=== PATIENT | female | born 1960 | race African-American/Black ===

== ENCOUNTER 2019-03-04 08:44 | Day surgery (SDC) | payer OTHER ==
[2019-03-04 09:35] VITALS: BMI 26.1
[2019-03-04 10:34] VITALS: TEMP 97.5
[2019-03-04 11:18] VITALS: BP 136/72; PULSE 64
--- NOTE | 2019-03-07 12:54 | PATH ---
Surgical Pathology Report Patient Name: FRANCIS JULES [facility]. Rec. #: [id number] /Age/Gender: 1960 (Age: 58) / F Account: [id number] Location: U-ENDOSCOPY Taken: 03/04/2019 Received: 03/04/2019 Reported: 03/07/2019 Physicians: Aldair Kim M.D. Specimen(s) Received A: SECOND PORTION OF DUODENUM AND DUODENAL BULB B: ANTRUM C: GE JUNCTION D: RECTAL POLYP Clinical History Anemia, occult GI bleed, personal history of colon polyp Postoperative diagnosis: Hiatal hernia, rectal polyp, diverticulosis Final Diagnosis A. SECOND PORTION OF DUODENUM AND DUODENAL BULB, BIOPSY: DUODENAL MUCOSA WITH NO PATHOLOGIC FINDINGS. B. ANTRUM, BIOPSY: MILD CHRONIC GASTRITIS. IMMUNOSTAIN IS NEGATIVE FOR H. PYLORI ORGANISMS. C. GE JUNCTION, BIOPSY: HYPERPLASTIC ESOPHAGEAL (SQUAMOUS) MUCOSA WITH FEW INTRAEPITHELIAL EOSINOPHILS, CONSISTENT WITH EOSINOPHILIC ESOPHAGITIS. NO COLUMNAR EPITHELIUM/INTESTINAL METAPLASIA IS IDENTIFIED. D. RECTAL POLYP, BIOPSY: HYPERPLASTIC POLYP. Electronically Signed Lilly Parada M.D. Gross Description A. Received in formalin, labeled "biopsy second portion of duodenum and duodenal bulb" are 3 palacios, irregular portions of soft tissue ranging from 0.3-0.4 cm. in greatest dimension. The specimens are submitted in toto in one cassette. B. Received in formalin, labeled "biopsy antrum" are 2 palacios, irregular portions of soft tissue measuring 0.1 and 0.3 cm. in greatest dimension. The specimens are submitted in toto in one cassette. C. Received in formalin, labeled "biopsy GE junction" are 4 palacios, irregular portions of soft tissue averaging 0.2 cm. in greatest dimension. The specimens are submitted in toto in one cassette. D. Received in formalin, labeled "biopsy rectal polyp" are 3 palacios, irregular portions of soft tissue averaging 0.2 cm. in greatest dimension. The specimens are submitted in toto in one cassette. 03/04/201903/04/2019
== END 2019-03-04 11:07 | disposition home or self-care (01) ==
LOC: JASU-ENDO 08:44
PROVIDERS: ATTEND Internal Medicine Gastroenterology
PROC: 0DB48ZX Excision of Esophagogastric Junction, Via Natural or Artificial Opening Endoscopic, Diagnostic (ICD-10-PCS; 2019-03-04)
PROC: 0DBP8ZX Excision of Rectum, Via Natural or Artificial Opening Endoscopic, Diagnostic (ICD-10-PCS; principal; 2019-03-04 08:45)
DX: Z12.11 Encounter for screening for malignant neoplasm of colon (principal); Z86.010 Personal history of colon polyps; D64.9 Anemia, unspecified; K92.1 Melena; K62.1 Rectal polyp; K57.30 Diverticulosis of large intestine without perforation or abscess without bleeding; K64.8 Other hemorrhoids; K21.9 Gastro-esophageal reflux disease without esophagitis

== ENCOUNTER 2024-12-10 06:07 | Day surgery (SDC) | payer OTHER ==
[2024-12-02 12:35] VITALS: BMI 28.1
[2024-12-10 09:06] VITALS: TEMP 98
[2024-12-10 09:55] VITALS: BP 126/76; PULSE 66; RESP 14
== END 2024-12-10 09:45 | disposition home or self-care (01) ==
LOC: JASU-ENDO 06:07
PROVIDERS: ATTEND Internal Medicine Gastroenterology
PROC: 0DBL8ZX Excision of Transverse Colon, Via Natural or Artificial Opening Endoscopic, Diagnostic (ICD-10-PCS; principal; 2024-12-10 08:00)
DX: Z12.11 Encounter for screening for malignant neoplasm of colon (principal); K63.5 Polyp of colon; K57.30 Diverticulosis of large intestine without perforation or abscess without bleeding; Z86.0100 Personal history of colon polyps, unspecified
CPT/HCPCS: 88305-TC